=== PATIENT | male | born 1995 | race Two or more races ===

== ENCOUNTER 2025-01-20 21:12 | Emergency (ER) | payer SELFPAY ==
[2025-01-20 21:14] VITALS: BP 111/74; PULSE 69; RESP 18; TEMP 36.8; O2SAT 97
[2025-01-20 21:16] VITALS: PULSE 90; RESP 18; O2SAT 96
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
[2025-01-20 21:40] VITALS: BMI 22.0
--- NOTE | 2025-01-20 22:08 | XR_ITS ---
Examination: CT maxillofacial, without intravenous contrast. 2-D sagittal reconstructions. 3-D reconstructions. Date and time of exam:January 20, 2025 10:37 PM Indications: Facial pain today CTDI: vol (mGy):17.2 DLP: (mGycm):978 Technique: Multiple axial images of maxillofacial region, 3.0 mm slice thickness. 2-D sagittal and coronal reconstructions. 3-D reconstructions. Low dose protocols were performed. One or more of the following dose reduction techniques were used; automated exposure control, adjustment of the mA and/or KV according to patient size, use of iterative reconstruction technique. Findings: All of the images are degraded by patient motion Possible fracture left inferior orbital rim Impression: All of the images are degraded by patient motion Possible fracture left inferior orbital rim Repeat this study without the patient motion
--- NOTE | 2025-01-20 22:08 | XR_ITS ---
Examination: CT brain head without contrast. 2-D sagittal coronal reconstructions Date and time of exam:January 20, 2025 10:45 PM CTDI: vol (mGy):51.3 DLP: (mGycm):978 Technique: Multiple CT axial sections of the brain have been obtained, 5 mm slice thickness. Contrast has not been administered. 2-D sagittal, coronal reconstructions have been obtained Low dose protocols were performed. One or more of the following dose reduction techniques were used; automated exposure control, adjustment of the mA and/or KV according to patient size, use of iterative reconstruction technique. Findings: No significant ventricular enlargement. Intra-axial or extra-axial hemorrhage density is not seen. No mass effect or midline shift Basal cisterns are not remarkable. Fourth ventricle is midline. Cranial vault intact. Impression: Negative for acute hemorrhage, mass effect or midline shift Blowout fracture left inferior orbital rim
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
== END 2025-01-21 01:55 | disposition home or self-care (01) ==
PROVIDERS: Emergency Provider Emergency Medicine
DX: S02.122A Fracture of orbital roof, left side, initial encounter for closed fracture (principal); Y09 Assault by unspecified means; Y92.512 Supermarket, store or market as the place of occurrence of the external cause
CPT/HCPCS: 70450; 70486; 99284